=== PATIENT | female | born 1995 | race Caucasian/White ===

== ENCOUNTER 2017-08-31 17:01 | Emergency (ER) | payer OTHER ==
[~2017-08-31] VITALS: Ht 152.4 cm; Wt 62.8 kg
[2017-08-31 17:13] VITALS: BP 126/80
--- NOTE | 2017-08-31 19:26 | NUR ---
PT TAKEN TO [facility]
--- NOTE | 2017-08-31 19:30 | NUR ---
21F BIB SELF C/O COUGH X 2 WEEKS AND INTERMITTENT BL EAR PAIN X YESTERDAY. PT STATES NO TRAUMA OR INJURY TO EARS AT THIS TIME. HX: PT DENIES RX: PT DENIES
[2017-08-31 20:44] VITALS: BP 119/64
--- NOTE | 2017-08-31 20:44 | NUR ---
Patient discharged with v/s stable. Written and verbal after care instructions given and explained. Patient alert, oriented and verbalized understanding of instructions. Ambulatory with steady gait. All questions addressed prior to discharge. ID band removed. Patient advised to follow up with PMD. Rx of MOTRIN 600MG AND ROBITUSSIN DM given. Patient educated on indication of medication including possible reaction and side effects. Opportunity to ask questions provided and answered.
== END 2017-08-31 20:44 | disposition home or self-care (01) ==
LOC: MED 17:01
DX: J20.8 Acute bronchitis due to other specified organisms (principal)
CPT/HCPCS: 99283